=== PATIENT | female | born 1965 | race Caucasian/White ===

== ENCOUNTER 2016-10-24 02:04 | Inpatient (IN) | payer MEDICAID ==
--- NOTE | ~2016-10-24 | PN ---
Unit #: [id number] #: [id number] Patient: ED TREVINO [id number] [facility] [address] [place] [address] [id number] MR#: [id number] NAME: ED TREVINO ROOM: [facility] Age: 51 Sex: F Admission Date: 10/24/2016 : 1965 Attending Physician: Maximiliano Figueroa M.D. Admitting Physician: Maximiliano Figueroa M.D. Primary Care Physician: Betito Salinas PROGRESS NOTES DATE 10/24/2016 DISCUSSION The patient continues to exhibit significant symptoms of opioid and alcohol withdrawal. She appears quite ill during today's interview. I have encouraged her to avail herself of prescribed p.r.n.'s. Dictated by... Maximiliano Figueroa M.D. VALERIE/kristen TD: 10/25/2016 15:33 JOB #: [id number] [facility] PROGRESS NOTES Page 1 of 1 X Maximiliano Figueroa MD X PROGRESS NOTE
--- NOTE | ~2016-10-24 | PN ---
Unit #: [id number] #: [id number] Patient: ED TREVINO [id number] [facility] [address] [place] [address] [id number] MR#: [id number] NAME: ED TREVINO ROOM: [facility] Age: 51 Sex: F Admission Date: 10/24/2016 : 1965 Attending Physician: Maximiliano Figueroa M.D. Admitting Physician: Maximiliano Figueroa M.D. Primary Care Physician: Betito Salinas PROGRESS NOTES DATE 10/26/2016 DISCUSSION The patient continues to complain of severe symptoms of withdrawal but does exhibit some med seeking today. I will change the parameters for her Ativan to objective ones only. Dictated by... Maximiliano Figueroa M.D. CB/kristen TD: 10/26/2016 17:24 JOB #: [id number] JOS[facility] PROGRESS NOTES Page 1 of 1 X Maximiliano Figueroa MD X PROGRESS NOTE
--- NOTE | ~2016-10-24 | PA ---
Unit #: [id number] #: [id number] Patient: ED TREVINO [id number] [facility] [address] [place] [address] [id number] I MR#: [id number] NAME: ED TREVINO ROOM: P173 Age: 51 Sex: F Admission Date: 10/24/2016 : 1965 Date of Assessment: 10/24/2016 Attending Physician: Maximiliano Figueroa M.D. Admitting Physician: Maximiliano Figueroa M.D. Primary Care Physician: Adal Lovett M.D. PSYCHIATRIC ASSESSMENT IDENTIFYING INFORMATION The patient is a 51-year-old white female, admitted with increasing abuse of psychoactive substances and suicidal ideation. CHIEF COMPLAINT None given. INFORMANTS The patient. The patient's reliability is fair. HISTORY OF PRESENT ILLNESS The patient is a 51-year-old white female, last admitted to this facility in 01/2016. She returns having once again relapsed into abuse of alcohol, heroin, benzodiazepines, and reporting positive suicidal ideation. The patient reports that she is feeling more and more worthless related to her current life situation and was reporting positive suicidal ideation. When admitted to the hospital today, the patient appears to be in significant physical distress related to withdrawal. She is reporting positive suicidal ideation during today's interview. For more complete history of present illness, please refer to previous dictated notes. PAST PSYCHIATRIC HISTORY Reviewed, no changes. PAST MEDICAL HISTORY Reviewed, no changes. MEDICATIONS Zoloft, Neurontin, methadone. ALLERGIES Ketorolac, morphine, Zofran, Vivitrol. FAMILY HISTORY Reviewed, no changes. SOCIAL HISTORY Reviewed, no changes. MENTAL STATUS EXAMINATION At this time reveals the patient to be a slightly obese white female, appearing somewhat older than her stated age. She appears to be in Unit #: [id number] #: [id number] Patient: ED TREVINO significant physical distress during evaluation. She is awake, alert, oriented in all spheres. Her mood is dysphoric and tearful. Her affect is congruent. Speech is generally well coherent. There are no gross deficits in memory or cognition noted. Intelligence is judged to be in the average range based on fund of knowledge. The patient is cooperative throughout the interview. She is currently endorsing positive suicidal ideation. She denies homicidal. She denies any psychotic symptoms. Her judgment and insight appear to be intact. ASSETS To be assessed. LIABILITIES Lack of resources. DIAGNOSTIC IMPRESSION Opioid use disorder, alcohol use disorder, sedative hypnotic use disorder, dysthymic disorder. TREATMENT PLAN The patient remains hospitalized for safety and stabilization. Routine detoxification protocol for alcohol, opioids, and benzodiazepines has been initiated. The patient will participate in appropriate javier and activities and I will ask her pediatric social worker to see regarding possible residential chemical dependency treatment following discharge. ESTIMATED STAY IN THE HOSPITAL 3 to 5 days. Dictated by... Maximiliano Figueroa M.D. VALERIE/janeth TD: 10/24/2016 23:06 JOB #: [id number] PSYCHIATRIC ASSESSMENT Page 1 of 1 X Maximiliano Figueroa MD X PSYCHIATRIC ASSESSMENT
--- NOTE | ~2016-10-24 | DS ---
Unit #: [id number] #: [id number] Patient: ED TREVINO [id number] [facility] [address] [place] [address] [id number] MR#: [id number] NAME: ED TREVINO ROOM: 73 Age: 51 Sex: F Admission Date: 10/24/2016 : 1965 Discharge Date: 10/26/2016 Attending Physician: Maximiliano Figueroa M.D. Primary Care Physician: Adal Lovett M.D. DISCHARGE SUMMARY REASON FOR ADMISSION The patient is a 51-year-old , white female, admitted to the [facility] with a history of abuse of opioids, alcohol, and sedative hypnotic use disorder. HOSPITAL COURSE The patient was admitted to the [facility] unit and placed on routine detoxification protocol for alcohol, opioids, and benzodiazepines. She did appear quite physically uncomfortable related to symptoms of withdrawal during her brief stay in the hospital. On 10/26/2016, the patient informed this physician that her father had and she requested discharge. The patient was informed that she was still on active withdrawal with elevations in blood pressure and see what present. She was informed of the risks of untreated alcohol withdrawal, but persisted in her demand to be discharged from the hospital. Accordingly discharge was ordered on an against medical advice basis. FINAL DIAGNOSES Opioid use disorder, alcohol use disorder, sedative hypnotic use disorder, dysthymic disorder. Hepatitis C, history of kidney stones. DISPOSITION ON DISCHARGE The patient is discharged against medical advice after discussion of the risks of untreated alcohol and sedative hypnotic withdrawal, given the circumstances of discharge. No psychotropic medications or followup are arranged. Dictated by... Maximiliano Figueroa M.D. CB/janeth TD: 10/26/2016 17:42 JOB #: [id number] Unit #: [id number] #: [id number] Patient: ED TREVINO DISCHARGE SUMMARY Page 1 of 1 X Maximiliano Figueroa MD X DISCHARGE SUMMARY
--- NOTE | ~2016-10-24 | HP ---
Unit #: [id number] #: [id number] Patient: ED TREVINO [id number] [facility] [address] [place] [address] [id number] I MR#: [id number] NAME: ED TREVINO ROOM: 73 Age: 51 Sex: F Admission Date: 10/24/2016 : 1965 Attending Physician: Maximiliano Figueroa M.D. Admitting Physician: Maximiliano Figueroa M.D. Primary Care Physician: Adal Lovett M.D. HISTORY AND PHYSICAL HISTORY OF PRESENT ILLNESS Ed is a 51 year old admitted to [facility] because of her continued illicit substance abuse which includes alcohol, heroin, and benzodiazepines. PAST MEDICAL HISTORY 1. Long history of polysubstance abuse to include IV drugs. 2. History of MRSA. 3. History of kidney stones. 4. Hepatitis C. 5. History of withdrawal seizures, benzodiazepines. PAST SURGICAL HISTORY 1. . 2. Hysterectomy. 3. Urethral stent placement. 4. Knee surgery. ALLERGIES Morphine, Naloxone, Toradol, Ondansetron. SOCIAL HISTORY She does not smoke. Drinks at least a pint of liquor on a daily basis. Admits to using IV heroin and abuses benzodiazepines. FAMILY HISTORY Medically noncontributory. REVIEW OF SYSTEMS Unremarkable. CURRENT MEDICATIONS 1. Detox protocol. 2. Zoloft 100 mg q. day. PHYSICAL EXAMINATION GENERAL: Alert, well nourished. No apparent distress. VITAL SIGNS: Blood pressure 110/80, heart rate 80, respirations 16, and temperature 98.6. WEIGHT: 150. HEIGHT: 5 feet 3 inches. SKIN: Warm and dry without rash or lesion. HEENT: Normocephalic. TMs not viewed. Oral and nasal passages clear. Unit #: [id number] #: [id number] Patient: ED TREVINO Conjunctivae clear. PERRLA. EOMs intact. NECK: Supple without lymphadenopathy or thyromegaly. HEART: Regular rate and rhythm without murmur. LUNGS: Clear. ABDOMEN: Soft, nontender. : Not done. EXTREMITIES: No evidence of cyanosis, clubbing or edema. Moves all without focal deficit. NEUROLOGICAL: Grossly within normal limits. Cranial Nerves: II: Visual serrano are intact. III, IV AND : Extraocular movements are intact. Pupils are equal, round and reactive to light. V: Facial sensation is grossly normal. VII: Facial movements and expression are normal. VIII: Auditory acuity grossly intact. IX, X: Uvula is midline. Phonation is normal. XI: Patient shrugs shoulders and turns head normally. XII: Tongue protrudes in the midline. Sensory and Motor Function: Sensory and motor sensation is grossly normal. Motor: moves all extremities well. Coordination: Gait is normal. Deep Tendon Reflexes: Intact. IMPRESSION Psychiatric admission. RECOMMENDATIONS PSYCHIATRIC: Per psychiatrist. MEDICAL: I see no contraindication to participate in this facility's activities. MEDICAL PROGNOSIS Good. MEDICAL CONDITION Stable. Dictated by... Gabby Little P.A.-C. for Betito Shah/rasheed TD: 10/25/2016 07:31 JOB #: [id number] HISTORY AND PHYSICAL Page 1 of 1 X Gabby Little X HISTORY AND PHYSICAL
[~2016-10-24 02:04] MED LIST: DOXYCYCLINE HY100 M3; FLOMAX0.4 M1 DOB; KEFZOL2 GM IV; KEPPRA500 M2; LISINOPRIL10 MG; NEURONTIN800 MG PO; PHENERGAN12.5 MG; ZOLOFT
[2016-10-25 10:07] LABS: THYROID STIMULATING HORMONE 0.21 uIU/ml (0.34-5.60)
[2016-10-25 10:14] LABS: FREE THYROXIN (T4) 0.77 ng/dL (0.58-1.64)
[2016-10-25 11:15] LABS: URINE APPEARANCE TURBID; URINE BILIRUBIN NEG (NEG); URINE BLOOD NEG (NEG); URINE COLOR AMBER; URINE GLUCOSE NORM (NORM); URINE KETONE NEG (NEG); URINE LEUKOCYTE ESTERASE 3+ (NEG); URINE NITRATE NEG (NEG); URINE PROTEIN NEG (NEG); URINE UROBILINOGEN NORM (NORM)
[2016-10-25 11:18] LABS: AMPHETAMINE POS (NEG); BARBITURATES NEG (NEG); BENZODIAZEPINES POS (NEG); COCAINE NEG (NEG); MARIJUANA NEG (NEG); OPIATES POS (NEG); TRICYCLIC ANTIDEPRESSANTS NEG (NEG); U METHADONE POS (NEG)
[2016-10-25 11:32] LABS: URBCS1 AUWI 0-2 /[HPF] (0-2); URINE AMORPHOUS SEDIMENT AMORP URATES; URINE BACTERIA AUWI 1+ (NEGATIVE); URINE SQUAMOUS EPITHELIAL CELL MODERATE /[HPF]
== END 2016-10-26 13:35 | disposition home or self-care (01) | DRG 897 ==
LOC: P1E 02:04
PROVIDERS: Specialist
PROC: HZ2ZZZZ Detoxification Services for Substance Abuse Treatment (ICD-10-PCS; principal; 2016-10-24)
DX: F10.20 Alcohol dependence, uncomplicated (principal); F11.20 Opioid dependence, uncomplicated; F13.20 Sedative, hypnotic or anxiolytic dependence, uncomplicated; F34.1 Dysthymic disorder; B19.20 Unspecified viral hepatitis C without hepatic coma; Z90.710 Acquired absence of both cervix and uterus
CPT/HCPCS: 80307; 81003; 84439; 84443; 86592

== ENCOUNTER 2016-11-12 04:07 | Inpatient (IN) | payer MEDICAID ==
--- NOTE | ~2016-11-12 | PA ---
Unit #: [id number] #: [id number] Patient: ED TREVINO [id number] [place] [address] [id number] MR#: [id number] NAME: ED TREVINO. ROOM: P204 Age: 51 Sex: F Admission Date: 11/12/2016 : 1965 Date of Assessment: 11/12/2016 Attending Physician: Maximiliano Figueroa M.D. Admitting Physician: Maximiliano Figueroa M.D. Primary Care Physician: Adal Lovett M.D. PSYCHIATRIC ASSESSMENT IDENTIFYING INFORMATION The patient is a 51-year-old white female, admitted to the [address] [place] [address] with a history of abuse of heroin, alcohol, benzodiazepines. CHIEF COMPLAINT None given. INFORMANTS The chart. The patient cannot be aroused for interview. HISTORY OF PRESENT ILLNESS The patient is a 51-year-old white female, last discharged from this facility against medical advice on 10/26/2016 after she had reported that her father had . The patient returns to this facility reporting a recent relapse of abuse of heroin Xanax and alcohol. The patient reports that she was having increasing suicidal thoughts but overdosing at the time of admission. when seen today the patient is sleeping soundly and multiple attempts to arouse her are unsuccessfully. PAST PSYCHIATRIC HISTORY Reviewed, no changes. PAST MEDICAL HISTORY Reviewed, no changes. MEDICATIONS Zoloft, Neurontin. ALLERGIES Ketorolac, morphine, Zofran, Vivitrol. FAMILY HISTORY Reviewed, no changes. SOCIAL HISTORY Reviewed, no changes. MENTAL STATUS EXAMINATION At this time reveals the patient to be an obese soundly sleeping white female, appearing stated age. She is in no apparent physical distress but at last does not arouse for interview in spite of multiple efforts on the part of this physician to awaken her ASSETS AND LIABILITIES Unit #: [id number] #: [id number] Patient: ED TREVINO ASSETS: To be assessed. LIABILITIES: Lack of resources. DIAGNOSTIC IMPRESSION Opioid use disorder, alcohol use disorder, sedative hypnotic use disorder, dysthymic disorder. TREATMENT PLAN The patient remains hospitalized for safety and stabilization. Routine detoxification protocol for opioids and alcohol has been initiated. At this point we will not reinitiate any prescribed medications but I will discuss this with the patient as her clinical course progresses. ESTIMATED STAY IN THE HOSPITAL Three to five days with followup to take place through the auspices of community mental resources. Dictated by... Maximiliano Figueroa M.D. VALERIE/alexandr TD: 11/13/2016 04:44 JOB #: [id number] PSYCHIATRIC ASSESSMENT Page 1 of 1 X Maximiliano Figueroa MD X PSYCHIATRIC ASSESSMENT
--- NOTE | ~2016-11-12 | PN ---
Unit #: [id number] #: [id number] Patient: ED TREVINO [id number] [facility] [address] [place] [address] [id number] MR#: [id number] NAME: ED TREVINO. ROOM: P204 Age: 51 Sex: F Admission Date: 11/12/2016 : 1965 Attending Physician: Maximiliano Figueroa M.D. Admitting Physician: Maximiliano Figueroa M.D. Primary Care Physician: Betito Salinas PROGRESS NOTES DATE 11/14/2016 DISCUSSION The patient continues to complain of severe symptoms of opioid withdrawal and complaints that her meds are not being passed on what she considers a timely basis. I will discuss this with staff, but the patient is receiving medication in the same fashion as all other patients. The patient continues to express interest in residential chemical dependence treatment following discharge and continues to complain of severe symptoms of withdrawal though it is the feeling of this physician that the severity of these symptoms seem somewhat exaggerated on the patient's part. Dictated by... Betito Young TD: 11/14/2016 14:12 JOB #: [id number] JOSHUA TORRES NOTES Page 1 of 1 X Maximiliano Figueroa MD X PROGRESS NOTE
--- NOTE | ~2016-11-12 | DS ---
Unit #: [id number] #: [id number] Patient: ED TREVINO [id number] [facility] [address] [place] [address] [id number] MR#: [id number] NAME: ED TREVINO. ROOM: P204 Age: 51 Sex: F Admission Date: 11/12/2016 : 1965 Discharge Date: 11/16/2016 Attending Physician: Maximiliano Figueroa M.D. Primary Care Physician: Adal Lovett M.D. DISCHARGE SUMMARY REASON FOR ADMISSION The patient is a 51-year-old white female, admitted with recurrent abuse of alcohol, Xanax, and heroin. HOSPITAL COURSE The patient was admitted to the [address] [place] [address] unit and placed on routine detoxification protocols to cover sedative hypnotics, alcohol, and opioids. Her stay in the hospital was characterized by a great deal of med seeking and purposeful manipulation of vital signs to gain medications. Her participation within the therapeutic milieu was less than optimal. By 11/16/2016, the patient requested discharge stating that she had been accepted at [facility] on the following Friday. As per her request, discharge was ordered. FINAL DIAGNOSES Sedative hypnotic use disorder, alcohol use disorder, opioid use disorder. DISCHARGE MEDICATIONS The patient is discharged on no psychotropic or other medications. FOLLOWUP Followup will take place through the auspices of community mental health resources and [facility]. PROGNOSIS The patient's prognosis is considered fair though somewhat shaded by her lack of investment in maintenance of sobriety. Dictated by... Maximiliano Figueroa M.D. CB/janeth TD: 11/16/2016 21:30 JOB #: [id number] Unit #: [id number] #: [id number] Patient: ED TREVINO DISCHARGE SUMMARY Page 1 of 1 X Maximiliano Figueroa MD X DISCHARGE SUMMARY
--- NOTE | ~2016-11-12 | HP ---
Unit #: [id number] #: [id number] Patient: ED TREVINO [id number] [facility] [address] [place] [address] [id number] MR#: [id number] NAME: ED TREVINO. ROOM: P204 Age: 51 Sex: F Admission Date: 11/12/2016 : 1965 Attending Physician: Maximiliano Figueroa M.D. Admitting Physician: Maximiliano Figueroa M.D. Primary Care Physician: Adal Lovett M.D. HISTORY AND PHYSICAL HISTORY OF PRESENT ILLNESS Ed is a 51 year old, admitted to [address] [place] [address] because of her polysubstance abuse which includes benzodiazepines and IV heroin. She has had other admissions to this facility for treatment of the same. The patient was seen and history and physical, dated 10/24/2016 was reviewed. This is current. No changes. Please see history and physical, dated 10/24/2016. Dictated by... Gabby Little P.A.-C. for Betito Shah/kenzie TD: 11/13/2016 12:18 JOB #: [id number] HISTORY AND PHYSICAL Page 1 of 1 X Gabby Little HISTORY AND PHYSICAL
--- NOTE | ~2016-11-12 | PN ---
Unit #: [id number] #: [id number] Patient: ED TREVINO [id number] [facility] [address] [place] [address] [id number] MR#: [id number] NAME: ED TREVINO. ROOM: P204 Age: 51 Sex: F Admission Date: 11/12/2016 : 1965 Attending Physician: Maximiliano Figueroa M.D. Admitting Physician: Maximiliano Figueroa M.D. Primary Care Physician: Betito Salinas PROGRESS NOTES DATE 11/15/2016 DISCUSSION The patient continues to complain of severe symptoms of withdrawal. This morning she had a pseudoseizure and is complaining regarding this. She also reports that she has been accepted at [facility] on Friday and hopes to go home tomorrow so that she can "pack some things." It is likely the discharge will take place at that time. Dictated by... Maximiliano Figueroa M.D. CB/rasheed TD: 11/15/2016 15:01 JOB #: [id number] [facility] PROGRESS NOTES Page 1 of 1 X Maximiliano Figueroa MD PROGRESS NOTE
--- NOTE | ~2016-11-12 | PN ---
Unit #: [id number] #: [id number] Patient: ED TREVINO [id number] [facility] [address] [place] [address] [id number] MR#: [id number] NAME: ED TREVINO. ROOM: P204 Age: 51 Sex: F Admission Date: 11/12/2016 : 1965 Attending Physician: Maximiliano Figueroa M.D. Admitting Physician: Maximiliano Figueroa M.D. Primary Care Physician: Betito Salinas PROGRESS NOTES DATE 11/13/2016 DISCUSSION The patient remains dysphoric and continues to complain of severe symptoms of withdrawal during today's interview. She has not yet been able to attempt programming. She is expressing interest in residential chemical dependence treatment and wants the detox as complete. Dictated by... Maximiliano Figueroa M.D. CB/bzg TD: 11/13/2016 14:00 JOB #: [id number] [facility] PROGRESS NOTES Page 1 of 1 X Maximiliano Figueroa MD PROGRESS NOTE
[2016-11-13 09:52] LABS: URINE APPEARANCE CLEAR; URINE BILIRUBIN NEG (NEG); URINE BLOOD NEG (NEG); URINE COLOR YELLOW; URINE GLUCOSE NEG (NEG); URINE KETONE NEG (NEG); URINE LEUKOCYTE ESTERASE 2+ (NEG); URINE NITRATE NEG (NEG); URINE PH 5.5 (5-8); URINE PROTEIN NEG (NEG); URINE SPECIFIC GRAVITY 1.015 (1.003-1.035)
[2016-11-13 09:55] LABS: URBCS1 AUWI 0-2 /[HPF] (0-2); URINE BACTERIA AUWI 1+ (NEGATIVE); URINE SQUAMOUS EPITHELIAL CELL OCC /[HPF]
[2016-11-13 11:17] LABS: AMPHETAMINE NEG (NEG); BARBITURATES NEG (NEG); BENZODIAZEPINES POS (NEG); COCAINE NEG (NEG); MARIJUANA NEG (NEG); OPIATES POS (NEG); TRICYCLIC ANTIDEPRESSANTS NEG (NEG); U METHADONE NEG (NEG)
== END 2016-11-16 14:20 | DRG 897 ==
LOC: P2S 04:07
PROVIDERS: Specialist
PROC: HZ2ZZZZ Detoxification Services for Substance Abuse Treatment (ICD-10-PCS; principal; 2016-11-12)
DX: F11.10 Opioid abuse, uncomplicated (principal); F10.10 Alcohol abuse, uncomplicated; F13.10 Sedative, hypnotic or anxiolytic abuse, uncomplicated; F34.1 Dysthymic disorder
CPT/HCPCS: 80307; 81003; 84703; 86592; 87806